=== PATIENT | female | born 1965 | race Caucasian/White ===

== ENCOUNTER 2022-11-30 11:00 | Emergency (ER) | payer OTHER ==
[~2022-11-30] VITALS: Ht 172.7 cm; Wt 154.2 kg
[2022-11-30 11:00] VITALS: BP 154/85
[~2022-11-30 11:00] MED LIST: CARB200T PO; PHEN100C PO
[2022-11-30] MEDS ORDERED: NS 1000ML 1,000 ML STA (11:04)
[2022-11-30] MEDS ORDERED: PHENOBARBITAL SODIUM IV STA (11:04)
[2022-11-30] MEDS ORDERED: DILANTIN IV STA (11:04)
[2022-11-30] MEDS ORDERED: NS 1000ML 1,000 ML ONE (11:10)
[2022-11-30] MEDS ORDERED: DILANTIN PO ONE (11:17)
[2022-11-30 11:25] LABS: BASOPHIL % 0.3 % (0.0-0.2); EOSINOPHIL # 0.2 10^3/uL (0.0-0.2); EOSINOPHIL % 2.5 % (0.0-5.0); LYMPHOCYTES % 14.3 % (24.0-44.0); MEAN CORP HGB 30.9 pg (26-34); MONOCYTES # 0.5 10^3/uL (0.3-0.8); MONOCYTES % 7.2 % (5.0-12.0); NEUTROPHIL # 4.7 10^3/uL (1.8-7.7); NEUTROPHILS % 75.4 % (41.0-85.0); PLATELET COUNT 235 10^3/uL (150-400); RED CELL DISTRIBUTION WIDTH 13.7 % (11.5-14.5)
[2022-11-30] MEDS ORDERED: PHENOBARBITAL SODIUM ONE (11:30)
[2022-11-30] MEDS ORDERED: NS 50ML 50 ML IV ONE (11:32)
--- NOTE | 2022-11-30 11:38 | PCM.EKG ---
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
[2022-11-30 11:40] LABS: CARBON DIOXIDE 25.8 mmol/L (20.0-32)
--- NOTE | 2022-11-30 12:12 | ER.PDOC ---
General Chief Complaint: Requesting Medical Care Stated Complaint: SEIZURE Time seen by MD: 11:00 Source: patient, EMS Exam Limitations: no limitations History of Present Illness Initial Comments Patient is a 57-year-old woman with a past medical history of a seizure disorder for which she takes phenytoin and phenobarbital and may or may not take Tegretol who arrives via EMS after having a seizure about 30 minutes prior to arrival. EMS states that patient had a seizure lasting 2 to 3 minutes that was generalized tonic-clonic. EMS states that patient's vital signs in route have been slightly hypertensive systolic blood pressure 145 a pulse of 90 respiratory rate of 18 and 95% on oxygen saturations with an EKG that they did in route that showed sinus rhythm. Patient states that she has been trying to get back in with her insurance that she has like [employer] and Medicare but has been working on getting her medications refilled has not taken any medication in the past week and believes that to be the cause of her seizure. Patient had a very minimal postictal phase per family report per EMS and is completely back to normal at this time. Patient denies any other symptoms or concerns at this time. Does not know what makes her symptoms better but thinks it may be noncompliance with her medications made them worse secondary to not being able to get her insurance to pay for the new medications patient states. EMS reports BG of 106 Allergies: Coded Allergies: No Known Allergies (Unverified , 06/23/14) Home Meds Reported Medications Phenytoin Sodium Extended (DILANTIN) 100 Mg Capsule, 100 MG PO BID, #2 CAPSULE 06/23/14 Carbamazepine (TEGRETOL) 200 Mg Tablet, 200 MG PO BID, #3 TABLET 06/23/14 Past Medical History Medical History: other (seizure) Surgical History: no surgical history Family History Significant Family History: no pertinent family hx Social History Smoking: non-smoker Alcohol Use: none Drug Use: none Reviewed Nursing Reviewed: Vital Signs, Abn. Noted, Nursing Assessment Constitutional: no symptoms reported EENTM: no symptoms reported Respiratory: no symptoms reported Cardiovascular: no symptoms reported Gastrointestinal: no symptoms reported Genitourinary: no symptoms reported Musculoskeletal: no symptoms reported Skin: no symptoms reported Psychiatric/Neurological: seizure Endocrine: no symptoms reported Hematologic/Lymphatic: no symptoms reported Physical Exam General Appearance: alert, no distress EENT: nml eye inspection, PERRL, no nystagmus, nml ENT inspection, no apparent, pharynx nml, no CSF leak Neck/Back: neck supple, non-tender Respiratory: no resp distress, breath sounds nml, no evidence of rib injury CVS: reg rate & rhythm, heart sounds nml Abdomen: non-tender, no organomegaly, no distention Skin: color nml, no rash, warm/dry Extremities: non-tender, nml ROM, no pedal edema Neuro/Psych: oriented x 3, speech nml, mood/affect nml Cranial Nerves: nml tested Cerebellar: nml tested, nml Romberg Sensorimotor: no motor deficit, no sensory deficit, reflexes nml Results/Orders Results/Orders Orders - LITZY HAM MD Cbc With Auto Diff (11/30/22 11:04) Comprehensive Metabolic Panel (11/30/22 11:04) EKG (11/30/22 11:04) Saline Lock (11/30/22 11:04) 0.9 % Sodium Chloride (Ns 1000ml) (11/30/22 11:04) Phenytoin Sodium (Dilantin) (11/30/22 11:04) Phenobarbital Sodium (Phenobarbital Sodi (11/30/22 11:04) 0.9 % Sodium Chloride (Ns 1000ml) (11/30/22 11:10) Phenytoin Sodium Extended (Dilantin) (11/30/22 11:17) Phenobarbital Sodium (Phenobarbital Sodi (11/30/22 11:30) 0.9 % Sodium Chloride (Ns 50ml) (11/30/22 11:32) Vital Signs Date Time Temp Pulse Resp B/P (MAP) Pulse Ox O2 Delivery O2 Flow Rate FiO2 11/30/22 11:00 97.7 79 18 11/30/22 11:00 97.7 79 18 154/85 (108) 94 Room Air* 0 21 11/30/22 11:00 97.7 79 18 94 Administered Medications Medications (Trade) Dose Ordered Sig/Eduard Route PRN Reason Start Time Stop Time Status Last Admin Dose Admin Phenobarbital (Phenobarbital Sodium) 130 mg STAT STAT IV 11/30/22 11:04 11/30/22 11:06 DC 11/30/22 11:36 130 MG Phenytoin Sodium (Dilantin) 200 mg OT STAT IV 1/5/23 11:04 11/30/22 11:06 DC 11/30/22 11:21 200 MG Sodium Chloride 1,000 ml @ 0 mls/hr Q0M STAT IV 11/30/22 11:04 11/30/22 11:06 DC 11/30/22 11:21 1,200 MLS/HR Laboratory Tests Test 11/30/22 11:18 White Blood Count 6.3 10^3/uL (4.5-11.0) Red Blood Count 3.91 10^6/uL (4.00-5.20) L Hemoglobin 12.1 g/dL (12.0-15.0) Hematocrit 36.9 % (36.0-46.0) Mean Corpuscular Volume 94.4 fL (78-100) Mean Corpuscular Hemoglobin 30.9 pg (26-34) Mean Corpuscular Hemoglobin Concent 32.8 g/dL (33-36.5) L Red Cell Distribution Width 13.7 % (11.5-14.5) Platelet Count 235 10^3/uL (150-400) Mean Platelet Volume 9.7 fL (7.8-11.0) Neutrophils (%) (Auto) 75.4 % (41.0-85.0) Lymphocytes (%) (Auto) 14.3 % (24.0-44.0) L Monocytes (%) (Auto) 7.2 % (5.0-12.0) Neutrophils # (Auto) 4.7 10^3/uL (1.8-7.7) Lymphocytes # (Auto) 0.90 10^3/uL1 (1.0-4.8) L Monocytes # (Auto) 0.5 10^3/uL (0.3-0.8) Absolute Immature Granulocyte (auto 0.02 10^3 u/L (0-2) Absolute Eosinophils (auto) 0.2 10^3/uL (0.0-0.2) Immature Granulocytes % 0.30 % (0.00-0.50) Eosinophils % 2.5 % (0.0-5.0) Basophils % 0.3 % (0.0-0.2) H Basophils # 0.0 10^3/uL (0.0-0.1) Sodium Level 141 mmol/L (132-145) Potassium Level 3.6 mmol/L (3.6-5.2) Chloride Level 107.0 mmol/L (96-109) Carbon Dioxide Level 25.8 mmol/L (20.0-32) Anion Gap 11.8 Blood Urea Nitrogen 10 mg/dL (7-18) Creatinine 0.85 mg/dL (0.59-1.40) Estimated GFR () 82.8 (>/=60) Est GFR (CKD-EPI)(Non-Afr Luxembourger) 68.5 (>/=60) BUN/Creatinine Ratio 11.0 Glucose Level 99 mg/dL (70-110) Calcium Level 8.7 mg/dL (8.4-10.5) Total Bilirubin 0.4 mg/dL (0.2-1.0) Aspartate Amino Transferase (AST) 20 U/L (0-35) Alanine Aminotransferase (ALT) 22 U/L (12-78) Alkaline Phosphatase 153 U/L (50-136) H Total Protein 8.3 g/dL (6.4-8.2) H Albumin 3.2 g/dL (3.4-5.0) L Globulin 5.1 Albumin/Globulin Ratio 0.627 Progress Progress All of the work-up including labs EKG interpreted by me. The case was discussed not only with the patient but also with the EMS crew as well as the patient's significant other. Patient here with history of seizure disorder and noncompliance with medication this is likely the reason the patient seized however must to do a work-up to include syncope as well as any electrolyte abnormalities that could have caused the seizure thus we will get an EKG as well as a CBC to make sure this was not like an anemia causing some sort of syncope or an EKG to evaluate for that as well. As well as electrolyte imbalances causing a seizure will obtain the chemistry. Will give patient fluids is that she had a seizure and we will need to help her flush out some of the lactic acid as well as patient does appear somewhat slightly dehydrated on physical exam. Will load patient with phenytoin and phenobarbital as these are the medications that she takes at home to prevent further seizure. [id number] states that she feels great still getting some fluids we will continue those but however we will continue with plan to discharge the patient she voiced understanding of when to follow-up and when to return to the ER. They do not currently need refills written because they state they already have them there to try to get the insurance to pay for them. ER DEPART Departure Time of Disposition: 12:12 Disposition: 01 HOME / SELF CARE / HOMELESS Impression: Primary Impression: Seizure Condition: Improved Patient Instructions: Seizure, Adult Referrals: PCP,UNKNOWN (PCP) PRIMARY CARE PROVIDER Additional Instructions: As we discussed please follow-up with your primary care provider within 1 week. If you need a new primary care provider you can call Dr. Barry at [phone] to set up an appointment. Please get your medications filled and take them as prescribed. If you have any new persistent or worsening symptoms or concerns seek medical attention. As you have had a seizure you must take all precautions and avoid places where having a seizure could cause or injury this includes not driving hiking on cliffs or swimming. Duration or Time Spent with Pa: 40 LITZY HAM MD Nov 30, 2022 12:12
== END 2022-11-30 12:19 | disposition home or self-care (01) ==
LOC: ER 11:00 → EDBD 11:00 → ER 12:19
DX: G40.409 Other generalized epilepsy and epileptic syndromes, not intractable, without status epilepticus (principal)
CPT/HCPCS: 99284; 96374; 96375; 80053; 85025; 36415; 93005; J7030; J2560

== ENCOUNTER 2024-08-14 01:59 | Emergency (ER) | payer MEDICARE, OTHER ==
[~2024-08-14] VITALS: Ht 172.7 cm; Wt 156.0 kg
[2024-08-14 01:59] VITALS: BP_SYST 165; BP_DIAS 68; BP_DIAS 78; PULSE 104; RESP 18; TEMP 98.5; O2SAT 93
[2024-08-14 02:42] LABS: BASOPHIL % 0.2 % (0.1-1.2); EOSINOPHIL # 0.1 10^3/uL (0.0-0.2); EOSINOPHIL % 0.5 % (0.0-5.0); HEMATOCRIT(ML) 37.4 % (36.0-46.0); HEMOGLOBIN 12.3 g/dL (12.0-15.0); LYMPHOCYTES # 0.76 10^3/uL1 (1.0-4.8); LYMPHOCYTES % 8.1 % (24.0-44.0); MEAN CORP HGB 31.4 pg (26-34); MEAN CORP HGB CONCENTRATION 32.9 g/dL (33-36.5); MEAN CORP VOLUME 95.4 fL (78-100); MONOCYTES # 0.4 10^3/uL (0.3-0.8); MONOCYTES % 4.1 % (5.0-12.0); NEUTROPHIL # 8.2 10^3/uL (1.8-7.7); NEUTROPHILS % 86.9 % (41.0-85.0); PLATELET COUNT 247 10^3/uL (150-400); RED BLOOD CELL 3.92 10^6/uL (4.00-5.20); RED CELL DISTRIBUTION WIDTH 13.8 % (11.5-14.5); WHITE BLOOD CELL 9.4 10^3/uL (4.5-11.0)
[2024-08-14] MEDS ORDERED: NS 1000ML 1,000 ML ONE (02:52)
[2024-08-14] MEDS ORDERED: KEPPRA 100 ML IV ONE (02:53)
[2024-08-14 02:54] LABS: ALBUMIN(ML) 3.3 g/dL (3.4-5.0); ALBUMIN/GLOBULIN RATIO 0.66; ANION GAP 14.5; BUN/CREATININE RATIO 16.5 (10.0-20.0); CALCIUM 8.9 mg/dL (8.4-10.5); CARBON DIOXIDE 26.8 mmol/L (20.0-32); CREATININE SERUM 1.03 mg/dL (0.59-1.40); EST GFR, NON-AA 54.5 (>/=60); POTASSIUM 4.3 mmol/L (3.6-5.2)
[2024-08-14 02:55] VITALS: BP 168/78; PULSE 94; RESP 18; TEMP 98.5; O2SAT 93
[2024-08-14] MEDS: NS 1000ML 1,000 ML STA (02:56)
[2024-08-14] MEDS: KEPPRA 100 ML IV STA (02:56)
[2024-08-14 03:53] LABS: +ADD MANUAL DIFF(NO CHRG) NO
[2024-08-14 03:55] VITALS: BP 168/78; PULSE 110; RESP 18; TEMP 98.5; O2SAT 93
== END 2024-08-14 04:10 | disposition home or self-care (01) ==
LOC: ER 01:59 → EDBD 01:59 → ER 04:10
DX: R56.9 Unspecified convulsions (principal)
CPT/HCPCS: 99284; 96365; 80053; 85025; 36415; 93005; J7030; J1953

== ENCOUNTER 2025-04-20 19:24 | Emergency (ER) | payer MEDICARE, OTHER ==
[2025-04-20 19:56] VITALS: BP 151/66; PULSE 85; RESP 20; TEMP 98.4; O2SAT 96
[2025-04-20] MEDS ORDERED: KEPPRA 100 ML IV ONE (20:01)
[2025-04-20] MEDS: KEPPRA 100 ML IV STA (20:08)
[2025-04-20 20:10] LABS: HEMATOCRIT(ML) 36.5 % (36.0-46.0); HEMOGLOBIN 11.4 g/dL (12.0-15.0); MEAN CORP HGB 30.5 pg (26-34); MEAN CORP HGB CONCENTRATION 31.2 g/dL (33-36.5); MEAN CORP VOLUME 97.6 fL (78-100); RED BLOOD CELL 3.74 10^6/uL (4.00-5.20); RED CELL DISTRIBUTION WIDTH 13.9 % (11.5-14.5); WHITE BLOOD CELL 8.3 10^3/uL (4.5-11.0)
[2025-04-20 20:22] LABS: ALBUMIN(ML) 3.2 g/dL (3.4-5.0); ALBUMIN/GLOBULIN RATIO 0.68; ANION GAP 10.3; BUN/CREATININE RATIO 14.95 (10.0-20.0); CALCIUM 8.5 mg/dL (8.4-10.5); CARBON DIOXIDE 26.8 mmol/L (20.0-32); CREATININE SERUM 1.07 mg/dL (0.59-1.40); POTASSIUM 4.1 mmol/L (3.6-5.2)
[2025-04-20 20:50] VITALS: BP 156/59; PULSE 82; RESP 20; TEMP 98.4; O2SAT 97
== END 2025-04-20 20:50 | disposition home or self-care (01) ==
LOC: EDBD 19:24 → ER 19:24
DX: G40.909 Epilepsy, unspecified, not intractable, without status epilepticus (principal); Z91.199 Patient's noncompliance with other medical treatment and regimen due to unspecified reason
CPT/HCPCS: 99284; 96365; 80053; 85027; 36415; J1953